=== PATIENT | male | born 1960 ===

== ENCOUNTER → 2024-08-20 06:15 | Day surgery (SDC) | payer MEDICARE, SELFPAY | LOC: GI 06:15 | PROVIDERS: ATTENDING PHYSICIAN Internal Medicine Gastroenterology | DX: R19.7 Diarrhea, unspecified (principal); Z86.0100 Personal history of colon polyps, unspecified; Z53.9 Procedure and treatment not carried out, unspecified reason | CPT/HCPCS: 45378; 93005; G0378 ==

== ENCOUNTER 2024-08-20 12:47 | Emergency (ER) | payer MEDICARE, SELFPAY ==
[2024-08-20 12:52] VITALS: BP 131/89
[2024-08-20 13:11] LABS: % Basophils 0.7 % (0-2); % Eosinophils 2.8 % (0-6); % Immature Granulocytes 0.3 % (0-0.5); % Lymphocytes 10.8 % (20.5-51.1); % Monocytes 9.2 % (1.7-9.3); % Neutrophils 76.2 % (42.2-75.2); Absolute Basophils 0.1 10^3/uL (0-0.2); Absolute Eosinophils 0.2 10^3/uL (0-0.7); Absolute Lymphocytes 0.8 10^3/uL (1.2-3.4); Absolute Monocytes 0.7 10^3/uL (0.1-0.6); Absolute Neutrophils 5.4 10^3/uL (1.4-6.5); Hematocrit 40.2 % (39.0-52.0); Hemoglobin 13.9 g/dL (13.0-18.0); Mean Corp Hgb Conc. 34.6 g/dL (33.0-37.0); Mean Corpuscular Hgb 29.8 pg (27.0-31.0); Mean Corpuscular Volume 86.3 fL (80.0-94.0); Mean Platelet Volume 9.4 fL (7.4-10.4); Nucleated Red Blood Cells % 0 % (-); Platelet Count 221 10^3/uL (130-400); Red Blood Cell Count 4.66 10^6/uL (4.70-6.10); Red Cell Dist. Width 12.6 % (11.5-14.5)
[2024-08-20 13:25] LABS: ALT (SGPT) 23 U/L (0-50); AST (SGOT) 23 U/L (17-59); Albumin 4.5 g/dl (3.5-5.0); Alkaline Phosphatase 87 U/L (38-126); Blood Urea Nitrogen 18 mg/dl (9-20); Calcium 9.5 mg/dl (8.4-10.2); Carbon Dioxide 23 mmol/L (22-30); Chloride 100 mmol/L (98-107); Glucose 93 mg/dl (70-99); Potassium 3.9 mmol/L (3.5-5.1); Sodium 136 mmol/L (135-145); Total Bilirubin 1.5 mg/dl (0.2-1.3); Total Protein 7.2 g/dl (6.3-8.2); eGFR > 60.00
[2024-08-20 14:00] LABS: Troponin I < 0.012 ng/ml
--- NOTE | 2024-08-20 14:16 | ED.GENMED ---
History of Present Illness
General
Chief Complaint: Cardiac Symptoms
Source: patient and records
Time Seen by Provider: 08/20/24 13:52
History of Present Illness
History of Present Illness:
64-year-old male with past medical history of hypertension hyperlipidemia presenting to the emergency department from outpatient colonoscopy after he was scheduled to undergo the procedure today but prior to the procedure was found to be in a rapid
A-fib. Patient states that he has no symptoms presently. He does note that over the weekend he was having some chest discomfort following completion of exercise but states that this has been ongoing for 1 to 2 years for which she has been working
with his fly worker on but states no etiology has been found despite stress tests and echocardiograms. Patient does note that this discomfort was a little bit different and felt more 'muscular'. Patient denies any fevers, chills, rigors, nausea,
vomiting, bowel changes or urinary symptoms. Denies any recent illnesses, travel, coughing or any other URI like symptoms.
Past History
Past History
ED Past Medical History: HTN and Hypercholesterolemia
ED Past Surgical History: Cholecystectomy
Social History
Tobacco: Non-smoker
Alcohol: Occasional
Drug: None
Personal:
Living: with family
Review of Systems
Review of Systems
All Other Systems: ROS reviewed and negative except as documented in HPI and ROS
Phy Exam
Physical Exam
Physical Exam:
GENERAL: Alert , in no apparent distress
EYE: conjunctiva clear
NECK: Supple
ENT: mmm.
CARDIAC: Irregularly irregular rate and rhythm, rate between 88 bpm and 108 bpm
LUNGS: Clear breath sounds bilaterally, no acute respiratory distress, no wheezes/rales/rhonchi
NEUROLOGICAL: Alert and oriented
SKIN: Warm and dry, skin intact.
MUSCULOSKELETAL: well perfused.
PSYCH: Normal and appropriate interaction.
Scores
[id number] Score for Afib Stroke Risk
Age in Years (65=0, 65-74=1, >/=75=2): 65-74
Sex (Female=+1): Male
Congestive Heart Failure History (Yes=+1): No
Hypertension History (Yes=+1): Yes
Stroke/TIA/Thromboembolism History (Yes=+2): No
Vascular Disease History (Yes=+1): No
Diabetes Mellitus (Yes=+1): No
Score: 2
Anticoagulation Recommendations: Recommend anticoagulation (as validated in nonvalvular fib)
Heart Failure Risk
Heart Failure Risk Score: Not Applicable
Heart Score for Chest Pain Patients
STEMI patient?: Not applicable
Withdrawal Assessment of Alcohol
Withdrawal Assessment Completed?: Not applicable
Course
Orders/Labs/Results
Orders:
Orders
08/20/24 12:48
EKG [Electrocardiogram (*1)] Urgent
Reason for Study: Atrial Fibrillation
EKG- Treatment ONCE
08/20/24 13:01
Complete Blood Count/With Diff Urgent
Comprehensive Metabolic Panel Urgent
TSH Reflex To Free T4 Urgent
Troponin I Urgent
08/20/24 14:36
Diltiazem Extended Release [Cardizem Cd] 120 mg PO NOW STA
Abnormal Lab Results
08/20/24
13:01
RBC 4.66 L 10^6/uL
(4.70-6.10)
Absolute Lymphs (auto) 0.8 L 10^3/uL
(1.2-3.4)
Absolute Monos (auto) 0.7 H 10^3/uL
(0.1-0.6)
Neutrophils % 76.2 H %
(42.2-75.2)
Lymphocytes % 10.8 L %
(20.5-51.1)
Total Bilirubin 1.5 H mg/dl
(0.2-1.3)
08/20/24 13:01
08/20/24 13:01
Vital Signs
Initial and Last Documented VS:
Initial Vital Signs
Temp Pulse Resp BP Pulse Ox
98.3 F 97 20 131/89 96
08/20/24 12:52 08/20/24 12:52 08/20/24 12:52 08/20/24 12:52 08/20/24 12:52
Last Documented Vital Signs
Temp Pulse Resp BP Pulse Ox
98.3 F 97 20 131 96
08/20/24 12:52 08/20/24 12:52 08/20/24 12:52 08/20/24 12:52 08/20/24 12:52
MDM/Problems Addressed
Differential Diagnosis Includes:
Currently in a rate controlled atrial fibrillation, dehydration, electrolyte derangement, underlying ACS, valvular dysfunction
MDM/Problems Addressed:
64-year-old male presenting to the ER for evaluation after he was found to be in a rapid A-fib prior to getting colonoscopy today. Patient asymptomatic presently but does note over the weekend after he was done exercising had some chest discomfort
but also notes that this has been an ongoing symptom for him over the last 1 to 2 years for which he already follows with cardiology as an outpatient. Patient sees Dr. Cates out of [facility] for this and does note he is already had
stress test, echocardiogram and cardiac catheterization without any significant findings other than some mild vessel disease which did not require stents. Patient does take a daily 81 mg aspirin. Currently hemodynamically stable. Rate controlled.
Will contact patient's fly worker to help determine disposition and treatment planning.
*Pulse Oximetry
Patient hypoxic: no
*EKG
Interpreted by ED Provider?: Yes
Heart Rate: 125
Rate: tachycardiac
Rhythm: a-fib
[place]: normal axis
Ischemia: no ischemia
*Locket Maker Interpretation
Rate: normal
Heart Rate: 94
Rhythm: a-fib
*Critical Care Note
Total Time (30-74mins, 75-104mins- exclusive of procedures): Not Applicable
Patient Management
Discussion with other providers: Fitness Instructor
Escalation/DeEscalation of care consider admission/obs:
I spoke to patient's fly worker, Dr. Cates, who agrees with plan for continued outpatient management. Requesting patient be discharged on Cardizem 120 CD and Eliquis 5 mg twice daily. Patient blood pressure prior to discharge was 102/80. Will
hold giving him the Cardizem here and advised that he hold taking his amlodipine for the time being. Patient will also hold taking his aspirin until speaking with cardiology about taking with his Eliquis. Patient stable for discharge home and
aware of return precautions to the ER
ED Attending Note
-
Portions of this chart may have been created with voice recognition software.� Occasional wrong word or��sound alike� substitutions may have occurred due to the inherent limitations of voice recognition software.
Discharge Plan
Departure
Patient Disposition: Home (Routine Discharge)
Date of Disposition: 08/20/24
Time of Disposition: 14:47
Patient with high blood pressure during this ER visit?: No
Discharge Problem:
Atrial fibrillation
Instructions: Atrial fibrillation - Discharge instructions
Prescriptions:
New
diltiazem HCl [Cardizem CD] 120 mg capsule,extended release 24hr
120 mg PO DAILY Qty: 30 0RF
Eliquis 5 mg tablet
5 mg PO BID Qty: 60 0RF
Referrals:
Doroteo Rahman MD [Family Provider] -
Interventions
Interventions:
*Risk Screen - Suicide Last Done: 08/20/24 14:00
*Neglect/Abuse Screening Last Done: 08/20/24 14:00
*ED- Fall Risk Assessment Last Done: 08/20/24 14:00
*ED COVID-19 Vaccine History Last Done: 08/20/24 14:00
*Nursing Disposition Last Done: 08/20/24 15:01
ED- Pulmonary Assessment Last Done: 08/20/24 14:00
ED- Cardiac Assessment Last Done: 08/20/24 14:00
Discharge Date and Time
Discharge Date/Time: 08/20/24 15:03
Print Language: ROMANSH
== END 2024-08-20 15:03 | disposition home or self-care (01) ==
LOC: EMR 12:47
PROVIDERS: Emergency Medicine; EMERGENCY PHYSICIAN Student in an Organized Health Care Education/Training Program; FAMILY PHYSICIAN Family Medicine
DX: I48.91 Unspecified atrial fibrillation (principal); I10 Essential (primary) hypertension; E78.00 Pure hypercholesterolemia, unspecified; Z90.49 Acquired absence of other specified parts of digestive tract
CPT/HCPCS: 99284; 80053; 84443; 84484; 85025; 93005

== ENCOUNTER 2025-05-23 06:12 | Day surgery (SDC) | payer MEDICARE, SELFPAY | END 2025-05-23 09:11 | disposition home or self-care (01) | LOC: GI 06:12 | PROVIDERS: ATTENDING PHYSICIAN Internal Medicine Gastroenterology | DX: D12.2 Benign neoplasm of ascending colon (principal); R19.7 Diarrhea, unspecified; R19.4 Change in bowel habit; Q43.8 Other specified congenital malformations of intestine; K56.2 Volvulus; K64.8 Other hemorrhoids; K64.4 Residual hemorrhoidal skin tags; N40.0 Benign prostatic hyperplasia without lower urinary tract symptoms | CPT/HCPCS: 45385; 45380; 88305 ==